=== PATIENT | female | born 1965 | race Caucasian/White ===

== ENCOUNTER 2019-05-05 06:22 | Emergency (ER) | payer MEDICARE, SELFPAY ==
[2019-05-05 06:27] VITALS: BP 184/101; PULSE 96; RESP 18; TEMP 36.2; O2SAT 100
--- NOTE | 2019-05-05 06:36 | ED.ABDPAIN ---
HPI - Abdominal Pain General Chief Complaint: Urogenital-Female Stated Complaint: burning urination Time Seen by Provider: 05/05/19 06:36 History of Present Illness HPI narrative: Dysuria since this morning. Associated with mild suprapubic discomfort and urgency. Additionally she noted a small amount of hematuria at the end of her stream. No frequency, urgency, fever, back pain, respiratory symptoms, sick contacts. Related Data Allergies Allergy/AdvReac Type Severity Reaction Status Date / Time amoxicillin Allergy Unknown Verified 02/07/17 06:13 Review of Systems Review of Systems: All systems reviewed & are unremarkable except as noted in HPI and below Constitutional: Constitutional: Denies fever(s) ENT: Denies sore throat Cardiovascular: Cardiovascular: Denies chest pain Respiratory: Respiratory: Denies cough and Denies dyspnea Gastrointestinal: Gastrointestinal: Reports abdominal pain, Denies constipation, Denies diarrhea, Denies nausea and Denies vomiting Genitourinary: Genitourinary: Denies abnormal vaginal bleeding, Reports hematuria, Denies nocturia, Reports dysuria, Denies flank pain and Denies vaginal discharge Musculoskeletal: Musculoskeletal: Denies myalgias Neurologic: Denies system reviewed and no additional complaints, except as documented Endocrine: Endocrine: Denies polydipsia and Denies polyuria FOR[facility]LY [facility] Past Medical History Medical History (Updated 05/05/19 @ 06:55 by Bhavin Rosenthal MD) HTN (hypertension) Surgical History Surgical History (Updated 05/05/19 @ 06:52 by Bhavin Rosenthal MD) Gastric bypass status for obesity H/O: hysterectomy Social History Social History (Updated 05/05/19 @ 06:52 by Bhavin Rosenthal MD) Smoking status: Never smoker Gender identity (if verbalized by the patient): Female Exam Const: General: healthy appearing, no acute distress and alert Nutritional Appearance: obese Orientation/consciousness: patient oriented x3 HENMT: Head: normal to inspection Neck: Neck: normal visual inspection Resp: Effort & Inspection: normal respiratory effort Auscultation: clear to auscultation bilaterally, no rales, no rhonchi and no wheezes Cardio: Jugular venous distension: no JVD Rate: regular rate Rhythm: regular rhythm Heart sounds: no murmurs GI: Inspection: non-distended GI Palp: Yes Soft to palpation and No Tenderness to palpation present (GI) : General: Yes no CVA tenderness Skin: General skin exam: normal color Neuro: General: patient oriented x3 and moves all extremities Speech: normal speech Extrem: General: no edema Psych: Appearance: well kempt Affect: normal affect Course Vital Signs Vital signs: Vital Signs Temperature 36.2 C L 05/05/19 06:27 Pulse Rate 96 05/05/19 06:27 Respiratory Rate 18 05/05/19 06:27 Blood Pressure 184/101 H 05/05/19 06:27 Pulse Oximetry 100 05/05/19 06:27 Temperature 36.2 C L 05/05/19 06:27 Pulse Rate 77 05/05/19 07:14 Respiratory Rate 18 05/05/19 07:14 Blood Pressure 155/92 H 05/05/19 07:14 Pulse Oximetry 98 05/05/19 07:14 MDM - Abdominal Pain Differential Diagnosis Differential diagnosis: Likely calculus of kidney, constipation and other (UTI) Medical Records Attestation: I reviewed the patient's medical records. Lab Data Attestation: I reviewed the patient's lab results. Labs: Lab Results 05/05/19 Range/Units 06:33 Urine Color Straw (Yellow) Urine Appearance Clear (Clear) Urine pH 8.0 (5.0-9.0) Ur Specific [place] 1.006 (1.001-1.035) Urine Protein 2+ H (Negative) mg/dL Urine Glucose (UA) Negative (Negative) mg/dL Urine Ketones Negative (Negative) mg/dL Ur Blood (Man) 3+ H (Negative) Urine Nitrate Negative (Negative) Urine Bilirubin Negative (Negative) Urine Urobilinogen Negative (<2.0) mg/dL Leukocyte Esterase Rfl 3+ H (Negative) YAMILE/UL Urine RBC 21-50 H (0-2) /hpf Urine WBC 31-50 H /hpf
[2019-05-05 06:48] LABS: Add Urine Microscopic? YES; Appearance Urine Clear (Clear); Bacteria Urine Trace /hpf; Bilirubin Urine Negative (Negative); Blood Urine 3+ (Negative); Color Urine Straw (Yellow); Glucose Urine UA Negative (Negative); Ketones Urine Negative (Negative); Leukocyte Esterase Ur 3+ LEU/UL (Negative); Nitrate Urine Negative (Negative); Protein Urine 2+ mg/dL (Negative); RBC Urine 21-50 /hpf (0-2); Specific Grav Ur 1.006 (1.001-1.035); Squamous Epithelial Cell Urine Occasional /hpf (Few); Urobilinogen Urine Negative mg/dL (<2.0); WBC Urine 31-50 /hpf
[2019-05-05] MEDS: NITROFURANTOIN MONOHYD MACROCR 100 MG CAP PO (07:12)
[2019-05-05 07:14] VITALS: BP 155/92; PULSE 77; RESP 18; O2SAT 98
== END 2019-05-05 07:15 | disposition home or self-care (01) ==
LOC: ANHED 07:04
PROVIDERS: Emergency Provider Emergency Medicine
DX: N30.01 Acute cystitis with hematuria (principal); I10 Essential (primary) hypertension; Z98.84 Bariatric surgery status
CPT/HCPCS: 81001; 87077; 87086; 87088; 87186; 99283; A9270